=== PATIENT | female | born 1950 | race Two or more races ===

== ENCOUNTER 2024-05-26 15:34 | Emergency (ER) | payer OTHER ==
[~2024-05-26] VITALS: Ht 160 cm; Wt 56.7 kg
[2024-05-26] MEDS ORDERED: ARICEPT5 MG (15:50)
[2024-05-26] MEDS ORDERED: LEVOTHYROXINE25 MCG PO (15:50)
[2024-05-26] MEDS ORDERED: PROZAC10 MG PO (15:50)
[2024-05-26] MEDS ORDERED: TRAMADOL HCL 50 MG TABLET PO ONE (16:30)
[2024-05-26] MEDS ORDERED: TRAMADOL HCL E100 M1 PO (16:49)
== END 2024-05-26 17:39 | disposition home or self-care (01) ==
LOC: ER 15:35
DX: S62.101A Fracture of unspecified carpal bone, right wrist, initial encounter for closed fracture (principal); W19.XXXA Unspecified fall, initial encounter; Y93.79 Activity, other specified sports and athletics; Y92.89 Other specified places as the place of occurrence of the external cause; Y99.8 Other external cause status; E03.8 Other specified hypothyroidism; Z88.0 Allergy status to penicillin